=== PATIENT | female | born 1985 | race Caucasian/White ===

== ENCOUNTER 2017-07-11 05:12 | Day surgery (SDC) | payer OTHER ==
[~2017-07-11] VITALS: Ht 162.6 cm; Wt 68.5 kg
[~2017-07-11 05:12] MED LIST: ADVIL MIGRAINE200 MG PO
[2017-07-11 05:53] VITALS: BP 123/79
[2017-07-11 09:35] VITALS: BP 124/74
[2017-07-11 10:44] VITALS: BP 107/67
== END 2017-07-11 10:55 | disposition home or self-care (01) ==
LOC: SDC 05:12
DX: N84.0 Polyp of corpus uteri (principal); N94.6 Dysmenorrhea, unspecified; N92.0 Excessive and frequent menstruation with regular cycle; Z87.891 Personal history of nicotine dependence
CPT/HCPCS: 84702; 88305; J1100; J1170; J1885; J2250; J2405; J3010

== ENCOUNTER 2017-10-18 17:46 | Emergency (ER) | payer OTHER ==
[~2017-10-18] VITALS: Ht 162.6 cm; Wt 71.6 kg
[2017-10-18] MEDS ORDERED: MOTRIN600 MG PO (22:01)
[2017-10-18] MEDS ORDERED: ULTRAM50 MG PO (22:01)
[2017-10-18 22:31] VITALS: BP 118/76
== END 2017-10-18 22:33 | disposition home or self-care (01) ==
LOC: EME 17:46
DX: S70.02XA Contusion of left hip, initial encounter (principal); S20.211A Contusion of right front wall of thorax, initial encounter; Y30.XXXA Falling, jumping or pushed from a high place, undetermined intent, initial encounter
CPT/HCPCS: 71046; 72100; 73502; 99281; 99284